=== PATIENT | female | born 1985 | race Caucasian/White ===

== ENCOUNTER 2017-01-24 10:42 | Inpatient (IN) | payer BC ==
[2017-02-10] MEDS ORDERED: Acetaminophen 325 MG Tab PO PRN (00:12)
[2017-02-10] MEDS ORDERED: Misoprostol 400 MCG (4 X 100 MCG TAB) RECTAL PRN (00:12)
[2017-02-10] MEDS ORDERED: Lactated Ringers 500 ML IV ONE (00:12)
[2017-02-10] MEDS ORDERED: Lidocaine 1% 30 ML SDV INJECT PRN (00:12)
[2017-02-10] MEDS ORDERED: Nalbuphine 20 MG/1 ML Amp IVPUSH PRN (00:12)
[2017-02-10] MEDS ORDERED: fentaNYL 100 MCG/2 ML SDV IVPUSH PRN (00:12)
[2017-02-10] MEDS ORDERED: Methylergonovine 0.2 MG/1 ML Amp IM PRN (00:12)
[2017-02-10] MEDS ORDERED: Carboprost Tromethamine 250 MCG/1 ML Amp IM PRN (00:12)
[2017-02-10] MEDS ORDERED: Sodium Chloride 0.9% 10 ML Syringe FLUSH PRN (00:12)
[2017-02-10] MEDS: Misoprostol 25 MCG (1/4 of 100 MCG) Tab VAG PRN ×3 (00:24→14:01)
--- NOTE | 2017-02-10 00:32 | PCM.LDHP ---
L&D History of Present Illness - General Date of Service: 02/10/17 Admit Problem/Dx: Patient Status Order with Admit Dx/Problem 02/10/17 00:12 Patient Status [ADT] Routine Admission Diagnosis/Problem Admission Diagnosis/Problem Source of Information: Patient History Limitations: Reports: No Limitations - History of Present Illness Introduction:: 31-year-old at 39w5d presents for IOL due to LGA. Last ultrasound was on 02/08/17 and showed EFW of 4087 grams. Risks and benefits of induction of labor versus conservative management were discussed with patient and her . They elected to proceed with induction. Patient has been feeling well. Baby has been active. NO regular contractions. NO leaking of fluid or vaginal bleeding. NO new headaches or vision changes. 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: Musculoskeletal History: Reports: None Neurological History: Reports: None Psychiatric History: Reports: None Endocrine/Metabolic History: Reports: None Hematologic History: Reports: None Immunologic History: Reports: None Oncologic (Cancer) History: Reports: None Dermatologic History: Reports: None - Infectious Disease History Infectious Disease History: Reports: None - Past Surgical History Head Surgeries/Procedures: Reports: None HEENT Surgical History: Reports: Other (See Below) Other HEENT Surgeries/Procedures: wisdom teeth removed Female Surgical History: Reports: Breast Implant Social & Family History - Family History Family Medical History: Noncontributory H&P Review of Systems - Review of Systems: Review Of Systems: See Below General: Reports: No Symptoms HEENT: Reports: No Symptoms Pulmonary: Reports: No Symptoms Cardiovascular: Reports: No Symptoms Gastrointestinal: Reports: No Symptoms Genitourinary: Reports: No Symptoms Musculoskeletal: Reports: No Symptoms Skin: Reports: No Symptoms L&D Exam - Exam Exam: See Below - OB Specific Fundal Height In cm: 40 Contraction Frequency (min): 4-7 Contraction Intensity: Mild Movement: Active Heart Tones: Present Heart Tones per Min: 130 Heart Rate (FHR) Variability: Moderate (6-25 bmp) Presentation: Vertex - Breaux Score Breaux Score Cervix Position: Anterior Breaux Score Consistency: Soft Breaux Score Effacement: 51-70% Breaux Score Dilation: 1-2 cm Breaux Score 's Station: -1 ,0 Breaux Score Total: 9 - Exam General: Alert, Oriented HEENT: Conjunctiva Clear, Mucosa Moist & [place] Lungs: Clear to Auscultation, Normal Respiratory Effort Cardiovascular: Regular Rate, Regular Rhythm Extremities: Pedal Edema (Trace to lower extremities bilaterally) Skin: Warm, Dry, Intact Psychiatric: Alert, Normal Affect, Normal Mood - Patient Data Lab Results Last 24 hrs: Laboratory Results - last 24 hr 02/10/17 Range/Units 00:01 WBC 14.2 H (5.0-10.0) 10^3/uL RBC 4.58 (4.2-5.4) 10^6/uL Hgb 13.1 (12.0-16.0) g/dL Hct 38.5 (37.0-47.0) % MCV 84.1 (80-100) fL MCH 28.6 (27.0-34.0) pg MCHC 34.0 (33.0-35.0) g/dL Plt Count 244 (150-450) 10^3/uL Result Diagrams: 02/10/17 00:01 - Problem List (1) LGA (large for gestational age) fetus SNOMED Code(s): 630295452 ICD Code: UOL3538 - Status: Acute Current Visit: Yes (2) Impaired glucose in , antepartum SNOMED Code(s): 063541902 ICD Code: O99.810 - ABNORMAL GLUCOSE COMPLICATING Status: Acute Current Visit: Yes (3) care in third trimester SNOMED Code(s): 339003776, 07699587, 827440781, 657460910 ICD Code: Z34.93 - ENCNTR FOR SUPRVSN OF NORMAL PREG, UNSP, THIRD TRIMESTER Status: Acute Current Visit: Yes Problem List Initiated/Reviewed/Updated: Yes Orders Last 24hrs: Active Orders 24 hr Category Date Time Status Patient Status [ADT] Routine ADT 02/10/17 00:12 Ordered Communication Order [RC] ASDIRECTED Care 02/10/17 00:12 Ordered Communication Order [RC] ASDIRECTED Care 02/10/17 00:12 Ordered Communication Order [RC] ASDIRECTED Care 02/10/17 00:12 Ordered Communication Order [RC] ASDIRECTED Care 02/10/17 00:12 Ordered Communication Order [RC] ASDIRECTED Care 02/10/17 00:12 Ordered Heart Tones [RC] PER UNIT ROUTINE Care 02/10/17 00:12 Ordered Monitoring [RC] PER UNIT ROUTINE Care 02/10/17 00:12 Ordered Notify Provider Vital Signs OB [RC] ASDIRECTED Care 02/10/17 00:12 Ordered Notify Provider [RC] PRN Care 02/10/17 00:12 Ordered Notify Provider [RC] PRN Care 02/10/17 00:12 Ordered Notify Provider [RC] PRN Care 02/10/17 00:12 Ordered Notify Provider [RC] STAT Care 02/10/17 00:12 Ordered Peripheral IV Care [RC] . DIRECTED Care 02/10/17 00:12 Ordered Pump Management, Intrathecal [RC] ASDIRECTED Care 02/10/17 00:12 Ordered Up ad Margarita [RC] ASDIRECTED Care 02/10/17 00:12 Ordered Vaginal Exam [RC] PRN Care 02/10/17 00:12 Ordered Vital Signs [RC] PER UNIT ROUTINE Care 02/10/17 00:12 Ordered Clear Liquid Diet [DIET] Diet 02/10/17 Breakfast Ordered Acetaminophen [Tylenol] Med 02/10/17 00:12 Ordered 650 mg PO Q4H PRN Carboprost Tromethamine [Hemabate DS] Med 02/10/17 00:12 Ordered 250 mcg IM ASDIRECTED PRN Lactated Ringers @ 125 MLS/HR(1000ml) Med 02/10/17 00:15 Ordered Lactated Ringers [Ringers, Lactated] 1,000 ml IV ASDIRECTED Lactated Ringers [Ringers, Lactated] 500 ml Med 02/10/17 00:12 Ordered IV .BOLUS Lidocaine 1% [Xylocaine-MPF 1%] Med 02/10/17 00:12 Ordered 10 ml INJECT ASDIRECTED PRN Methylergonovine [Methergine] Med 02/10/17 00:12 Ordered 0.2 mg IM ASDIRECTED PRN Misoprostol [Cytotec] Med 02/10/17 00:12 Ordered 25 mcg VAG Q4H PRN Misoprostol [Cytotec] Med 02/10/17 00:12 Ordered 800 mcg RECTAL ASDIRECTED PRN Nalbuphine [Nubain] Med 02/10/17 00:12 Ordered 10 mg IVPUSH Q3H PRN Ondansetron [Zofran] Med 02/10/17 00:12 Ordered 4 mg IV Q4H PRN Oxytocin 30 Units in NS @ 2 MUNITS/MIN(500ml) Med 02/10/17 00:15 Ordered Oxytocin/Normal Saline [Pitocin in NS 30 UNIT/500 ML] 30 unit in 500 ml IV TITRATE Sodium Chloride 0.9% [Saline Flush] Med 02/10/17 00:12 Ordered 10 ml FLUSH ASDIRECTED PRN fentaNYL [Sublimaze] Med 02/10/17 00:12 Ordered 50 mcg IVPUSH Q1H PRN Peripheral IV Insertion Adult [OM.PC] Urgent Oth 02/10/17 00:12 Ordered Saline Lock Insert [OM.PC] Routine Oth 02/10/17 00:12 Ordered Resuscitation Status Routine Resus Stat 02/10/17 00:12 Ordered Medication Orders Acetaminophen (Tylenol) 650 mg PO Q4H PRN PRN Reason: Pain (Mild 1-3) and fever Carboprost Tromethamine (Hemabate Ds) 250 mcg IM ASDIRECTED PRN PRN Reason: HEMORRHAGE Fentanyl (Sublimaze) 50 mcg IVPUSH Q1H PRN PRN Reason: Pain (moderate 4-6) Lactated Ringer's (Ringers, Lactated) 500 mls @ 999 mls/hr IV .BOLUS ONE Stop: 02/10/17 00:42 Lactated Ringer's (Ringers, Lactated) 1,000 mls @ 125 mls/hr IV ASDIRECTED KARIS Oxytocin/Sodium Chloride (Pitocin In Ns 30 Unit/500 Ml) 30 unit in 500 mls @ 2 mls/hr IV TITRATE KARIS; 2 MUNITS/MIN PRN Reason: Protocol Lidocaine HCl (Xylocaine-Mpf 1%) 10 ml INJECT ASDIRECTED PRN PRN Reason: Perineal Repair Methylergonovine Maleate (Methergine) 0.2 mg IM ASDIRECTED PRN PRN Reason: Hemorrhage Misoprostol (Cytotec) 800 mcg RECTAL ASDIRECTED PRN PRN Reason: Hemorrhage Misoprostol (Cytotec) 25 mcg VAG Q4H PRN PRN Reason: cervical ripening Nalbuphine HCl (Nubain) 10 mg IVPUSH Q3H PRN PRN Reason: Pain (moderate 4-6) Ondansetron HCl (Zofran) 4 mg IV Q4H PRN PRN Reason: Nausea/Vomiting Sodium Chloride (Saline Flush) 10 ml FLUSH ASDIRECTED PRN PRN Reason: Keep Vein Open Assessment/Plan Comment:: 31-year-old at 39w5d who present for IOL for LGA 1. Admit to L&D 2. Cytotec placed 3. Plan for AROM and pitocin for augmentation 4. Patient does plan for intrathecal 5. Expectant management. Anticipate Nicole Hester MD
[2017-02-10] MEDS: Lactated Ringers 1,000 ML IV SCH ×3 (04:51→22:42)
[2017-02-10] MEDS: Oxytocin/Normal Saline 30 UNIT/500 ML BAG IV SCH ×2 (08:51→20:06)
[2017-02-11] MEDS: Lactated Ringers 1,000 ML IV SCH ×5 (01:33→16:37)
[2017-02-11] MEDS: Ondansetron 4 MG/2 ML SDV IV PRN ×2 (02:29→07:59)
[2017-02-11] MEDS ORDERED: fentaNYL 100 MCG/2 ML SDV ONE ×2 (02:40→08:07)
--- NOTE | 2017-02-11 03:42 | PCM.PRNOTE ---
- Free Text/Narrative Note: Requested to provide analgesia to full term patient in severe pain. Upon entering the room, patient is lying on left side complaining of severe abdominal pain and discomfort. Procedure was discussed with patient including adverse outcomes and expectations. Pt consented to analgesia, SAB/IT. Pt placed into a sitting position. Landmarks for SAB/IT were identified and marked. Back was prepped with betadine x3. A sterile, transparent, fenestrated drape was applied. Excess betadine was removed. Using 3 mL of a 1% lidocaine solution, a skin wheel was placed at the L3/L4 interspace. A 24 ga (4 inch) Pencan spinal needle was inserted but unsuccessful for first attempt. Second attempt at L4/L5 interspace with a 24 ga (4 inch) needle was positive for CSF. Negative for heme or paresthesias. Injected fentanyl 20 mcg, sufentanil 10 mcg , and 10 mg of a 0.75% bupivacaine solution with an epi wash. Pt was placed left lateral position for approximately 20 minutes. There were zero complications or adverse outcomes. Will continue to monitor.
--- NOTE | 2017-02-11 08:51 | PCM.PRNOTE ---
- Free Text/Narrative Note: Requested to provide analgesia to full term patient in severe pain. Upon entering the room, patient is sitting on side of bed complaining of severe abdominal pain and discomfort. Procedure was discussed with patient including adverse outcomes and expectations. Pt consented to analgesia, SAB/IT. Pt placed into a sitting position. Landmarks for SAB/IT were identified and marked. Back was prepped with betadine x3. A sterile, transparent, fenestrated drape was applied. Excess betadine was removed. Using 3 mL of a 1% lidocaine solution, a skin wheel was placed at the L4L5 interspace. A 24 ga (4 inch) Pencan spinal needle was inserted until positive for CSF. Negative for heme or paresthesias. Injected fentanyl 20 mcg, sufentanil 11.25 mcg, and 10 mg of a 0.75% bupivacaine solution with an epi wash. Pt was placed left lateral position for approximately 20 minutes. There were zero complications or adverse outcomes. Will continue to monitor.
[2017-02-11] MEDS ORDERED: Citric Acid/Sodium Citrate Solution 30 ML Cup PO ONE (10:39)
[2017-02-11] MEDS ORDERED: ceFAZolin 2 GM in Premix Bag 1 BAG IV ONE (10:39)
--- NOTE | 2017-02-11 11:27 | PCM.PNLD ---
Labor Progress Note - VS & Meds Vital Signs: Last Vital Signs Temp 37.0 C 02/11/17 04:30 Pulse 56 L 02/11/17 08:39 Resp 18 02/11/17 08:39 BP 127/54 L 02/11/17 08:39 Pulse Ox 100 02/11/17 08:39 Active Medications: Current Medications Acetaminophen (Tylenol) 650 mg PO Q4H PRN PRN Reason: Pain (Mild 1-3) and fever Carboprost Tromethamine (Hemabate Ds) 250 mcg IM ASDIRECTED PRN PRN Reason: HEMORRHAGE Fentanyl (Sublimaze) 50 mcg IVPUSH Q1H PRN PRN Reason: Pain (moderate 4-6) Last Admin: 02/11/17 01:31 Dose: 50 mcg Lactated Ringer's (Ringers, Lactated) 1,000 mls @ 125 mls/hr IV ASDIRECTED KARIS Last Admin: 02/11/17 11:04 Dose: 125 mls/hr Oxytocin/Sodium Chloride (Pitocin In Ns 30 Unit/500 Ml) 30 unit in 500 mls @ 2 mls/hr IV TITRATE KARIS; 2 MUNITS/MIN PRN Reason: Protocol Last Titration: 02/11/17 10:15 Dose: 0 mls/hr Lidocaine HCl (Xylocaine-Mpf 1%) 10 ml INJECT ASDIRECTED PRN PRN Reason: Perineal Repair Methylergonovine Maleate (Methergine) 0.2 mg IM ASDIRECTED PRN PRN Reason: Hemorrhage Misoprostol (Cytotec) 800 mcg RECTAL ASDIRECTED PRN PRN Reason: Hemorrhage Misoprostol (Cytotec) 25 mcg VAG Q4H PRN PRN Reason: cervical ripening Last Admin: 02/10/17 14:01 Dose: 25 mcg Nalbuphine HCl (Nubain) 10 mg IVPUSH Q3H PRN PRN Reason: Pain (moderate 4-6) Last Admin: 02/10/17 22:39 Dose: 10 mg Ondansetron HCl (Zofran) 4 mg IV Q4H PRN PRN Reason: Nausea/Vomiting Last Admin: 02/11/17 07:59 Dose: 4 mg Sodium Chloride (Saline Flush) 10 ml FLUSH ASDIRECTED PRN PRN Reason: Keep Vein Open Discontinued Medications Citric Acid/Sodium Citrate (Bicitra Solution) 30 ml PO ONETIME ONE Stop: 02/11/17 10:40 Fentanyl (Sublimaze) Confirm Administered Dose 100 mcg .ROUTE .STK-MED ONE Stop: 02/11/17 02:41 Last Admin: 02/11/17 06:30 Dose: Not Given Fentanyl (Sublimaze) Confirm Administered Dose 100 mcg .ROUTE .STK-MED ONE Stop: 02/11/17 08:08 Lactated Ringer's (Ringers, Lactated) 500 mls @ 999 mls/hr IV .BOLUS ONE Stop: 02/10/17 00:42 Last Admin: 02/11/17 04:54 Dose: Not Given Cefazolin Sodium/Dextrose 2 gm (/ Premix) 50 mls @ 100 mls/hr IV ONETIME ONE Stop: 02/11/17 11:08 Sufentanil Citrate (Sufenta) Confirm Administered Dose 50 mcg .ROUTE .STK-MED ONE Stop: 02/11/17 02:42 Last Admin: 02/11/17 06:30 Dose: Not Given Sufentanil Citrate (Sufenta) Confirm Administered Dose 50 mcg .ROUTE .STK-MED ONE Stop: 02/11/17 08:08 - Uterine Contractions Uterine Monitoring Mode: IUPC Contraction Frequency (min): 6-6.5 Contraction Duration (sec): 60-80 Contraction Intensity: Strong Uterine Resting Tone: Soft - Monitoring Heart Rate (FHR) Variability: Moderate (6-25 bmp) - Vaginal Exam Dilation (cm): 8.5 Effacement (Percent): 100 Station: -2 Cervical Position: Midposition Sterile Vaginal Exam Performed By: Ray Saunders Vaginal Exam Comment: Scalp stimulation performed at this time, along with cervical check. - Labor Progress (Free Text) Labor Progress: Patient was again checked just before 10 AM by SONALI Clarke. Cervix remained unchanged. Patient has so far received 3 doses of Cytotec, undergone AROM and been on pitocin for over 12 hours. No significant cervical change in the past 4 hours. Discussed the low chance of progression to complete dilation as well as the risks and benefits of continuing with labor. Patient and her are in agreement with proceeding with section. As patient received an intrathecal around 0800, we will wait until 12:00-12:30 for delivery as long as baby remains stable. Patient is comfortable with this plan. The risks and benefits of section, including but not limited to bleeding, infection, and injury to surrounding structures were reviewed with the patient. Consents were signed. Will proceed with section when appropriate. Nicole Hester MD
[2017-02-11] MEDS ORDERED: Oxytocin/Normal Saline 60 UNIT/1,000 ML BAG ONE (12:52)
[2017-02-11] MEDS ORDERED: Oxytocin/Normal Saline 30 UNIT/500 ML BAG IV SCH (14:20)
[2017-02-11] MEDS ORDERED: diphenhydrAMINE 50 MG/ML SDV IVPUSH PRN (14:43)
[2017-02-11] MEDS ORDERED: ePHEDrine 50 MG/ML SDV IVPUSH PRN (14:43)
[2017-02-11] MEDS ORDERED: Naloxone 2 MG/2 ML Syringe IVPUSH PRN (14:43)
[2017-02-11] MEDS ORDERED: Acetaminophen/oxyCODONE 325-5 MG Tab PO PRN (14:43)
--- NOTE | 2017-02-11 14:49 | PCM.DEL ---
L & D Note - General Info Date of Service: 02/11/17 Mother's Due Date: 02/12/17 - Delivery Note Labor: Augmented by ARM, Augmented by Oxytocin Cervical Ripening Method: Misoprostil Delivery Outcome: Livebirth Delivery Method: Primary Presentation: Vertex Nuchal Cord: None Anesthesia Type: Spinal, Intrathecal (x2) Amniotic Fluid Description: Clear Laceration: None Placenta: Intact Cord: 3 Vessels Estimated Blood Loss: 600 Resuscitation Needed: Yes [place]: Suctioned, Bulb Syringe, Stimulated, Warmed, Warmer Used Provider: Nicole Hester Score 1 min: 2 Score 5 min: 9 Delivery Comments (Free Text/Narrative):: Please see procedure note - Patient Data Vitals - Most Recent: Last Vital Signs Temp 36.9 C 02/11/17 10:15 Pulse 66 02/11/17 11:00 Resp 18 02/11/17 11:00 BP 130/55 L 02/11/17 11:00 Pulse Ox 100 02/11/17 10:45 Weight - Most Recent: 119.295 kg I&O - Last 24 Hours: Intake & Output 02/10/17 02/11/17 02/11/17 22:59 06:59 14:59 Intake Total 50 Balance 50 Lab Results Last 24 Hours: Laboratory Results - last 24 hr 02/10/17 Range/Units 00:01 Blood Type O POSITIVE Gel Antibody Screen Negative Med Orders - Current: Current Medications Acetaminophen (Tylenol) 650 mg PO Q4H PRN PRN Reason: Pain (Mild 1-3) and fever Carboprost Tromethamine (Hemabate Ds) 250 mcg IM ASDIRECTED PRN PRN Reason: HEMORRHAGE Methylergonovine Maleate (Methergine) 0.2 mg IM ASDIRECTED PRN PRN Reason: Hemorrhage Misoprostol (Cytotec) 800 mcg RECTAL ASDIRECTED PRN PRN Reason: Hemorrhage Misoprostol (Cytotec) 25 mcg VAG Q4H PRN PRN Reason: cervical ripening Last Admin: 02/10/17 14:01 Dose: 25 mcg Ondansetron HCl (Zofran) 4 mg IV Q4H PRN PRN Reason: Nausea/Vomiting Last Admin: 02/11/17 07:59 Dose: 4 mg Sodium Chloride (Saline Flush) 10 ml FLUSH ASDIRECTED PRN PRN Reason: Keep Vein Open Discontinued Medications Citric Acid/Sodium Citrate (Bicitra Solution) 30 ml PO ONETIME ONE Stop: 02/11/17 10:40 Last Admin: 02/11/17 12:10 Dose: 30 ml Fentanyl (Sublimaze) 50 mcg IVPUSH Q1H PRN PRN Reason: Pain (moderate 4-6) Last Admin: 02/11/17 01:31 Dose: 50 mcg Fentanyl (Sublimaze) Confirm Administered Dose 100 mcg .ROUTE .STK-MED ONE Stop: 02/11/17 02:41 Last Admin: 02/11/17 06:30 Dose: Not Given Fentanyl (Sublimaze) Confirm Administered Dose 100 mcg .ROUTE .STK-MED ONE Stop: 02/11/17 08:08 Last Admin: 02/11/17 12:09 Dose: Not Given Lactated Ringer's (Ringers, Lactated) 500 mls @ 999 mls/hr IV .BOLUS ONE Stop: 02/10/17 00:42 Last Admin: 02/11/17 04:54 Dose: Not Given Lactated Ringer's (Ringers, Lactated) 1,000 mls @ 125 mls/hr IV ASDIRECTED KARIS Last Admin: 02/11/17 11:04 Dose: 125 mls/hr Oxytocin/Sodium Chloride (Pitocin In Ns 30 Unit/500 Ml) 30 unit in 500 mls @ 2 mls/hr IV TITRATE KARIS; 2 MUNITS/MIN PRN Reason: Protocol Last Titration: 02/11/17 10:15 Dose: 0 mls/hr Cefazolin Sodium/Dextrose 2 gm (/ Premix) 50 mls @ 100 mls/hr IV ONETIME ONE Stop: 02/11/17 11:08 Last Admin: 02/11/17 13:10 Dose: 100 mls/hr Oxytocin/Sodium Chloride (Pitocin In Ns 30 Unit/500 Ml) Confirm Administered Dose 60 unit in 1,000 mls @ as directed .ROUTE .STK-MED ONE Stop: 02/11/17 12:53 Lidocaine HCl (Xylocaine-Mpf 1%) 10 ml INJECT ASDIRECTED PRN PRN Reason: Perineal Repair Nalbuphine HCl (Nubain) 10 mg IVPUSH Q3H PRN PRN Reason: Pain (moderate 4-6) Last Admin: 02/10/17 22:39 Dose: 10 mg Sufentanil Citrate (Sufenta) Confirm Administered Dose 50 mcg .ROUTE .STK-MED ONE Stop: 02/11/17 02:42 Last Admin: 02/11/17 06:30 Dose: Not Given Sufentanil Citrate (Sufenta) Confirm Administered Dose 50 mcg .ROUTE .STK-MED ONE Stop: 02/11/17 08:08 Last Admin: 02/11/17 12:09 Dose: Not Given - Problem List & Annotations (1) Impaired glucose in , antepartum SNOMED Code(s): 709032525 Code(s): O99.810 - ABNORMAL GLUCOSE COMPLICATING Status: Acute Current Visit: Yes (2) care in third trimester SNOMED Code(s): 332301451, 41515210, 900870603, 495297526 Code(s): Z34.93 - ENCNTR FOR SUPRVSN OF NORMAL PREG, UNSP, THIRD TRIMESTER Status: Acute Current Visit: Yes (3) Status post delivery SNOMED Code(s): 675580406 Code(s): Z98.891 - HISTORY OF UTERINE SCAR FROM PREVIOUS SURGERY Status: Acute Current Visit: Yes - Problem List Review Problem List Initiated/Reviewed/Updated: Yes - My Orders Last 24 Hours: My Active Orders 02/11/17 14:43 Bedrest [RC] ASDIRECTED Communication Order [RC] PER UNIT ROUTINE Communication Order [RC] PER UNIT ROUTINE Communication Order [RC] Per Unit Routine Intake and Output [RC] Q8H Notify Provider Intake and Out [RC] ASDIRECTED RT Incentive Spirometry [RC] Q2HWA Urinary Catheter Removal [RC] Per Unit Routine Vital Signs [RC] PER UNIT ROUTINE Consult to Business Banking Relationship Manager [CONS] Routine Acetaminophen/oxyCODONE [Percocet 325-5 MG] 1 tab PO Q4H PRN Acetaminophen/oxyCODONE [Percocet 325-5 MG] 2 tab PO Q4H PRN Docusate Sodium [Colace] 100 mg PO Q12H PRN Ibuprofen [Motrin] 800 mg PO Q8H PRN Naloxone [Narcan] 0.1 mg IVPUSH SEECOMMENT PRN Simethicone 80 mg PO Q4H PRN diphenhydrAMINE [Benadryl] 25 mg IVPUSH Q6H PRN ePHEDrine [ePHEDrine Sulfate] 5 mg IVPUSH SEECOMMENT PRN Antiembolic Hose [OM.PC] Per Unit Routine Assess Lochia [WOMSER] Per Unit Routine Assess Uterine Involution [WOMSER] Per Unit Routine Breast Pump [WOMSER] Per Unit Routine Sequential Compression Device [OM.PC] Per Unit Routine 02/11/17 14:45 Antiembolic Devices [RC] PER UNIT ROUTINE Ketorolac [Toradol] 15 mg IVPUSH Q6H Lactated Ringers @ 125 MLS/HR(1000ml) Lactated Ringers [Ringers, Lactated] 1, 000 ml IV ASDIRECTED 02/11/17 Dinner Regular Diet [DIET] 02/11/17 Lunch Nothing Per Oral Diet [DIET] 02/13/17 08:00 CBC W/O DIFF,HEMOGRAM [HEME] Routine - Assessment Assessment:: 31-year-old, now , status post primary section at 39w6d for failure to progress - Plan Plan:: 1. Initiate routine postoperative care 2. Plans to breastfeed 3. Check CBC tomorrow AM 4. Anticipate discharge 02/14/17 Nicole Hester MD
--- NOTE | 2017-02-11 14:54 | PCM.PRNOTE ---
- Free Text/Narrative Note: Section Operative Report Date of Surgery: 02/11/2017 Surgeon: Nicole Hester MD Car Sales Representative: Bruce Menon MD Pre-Operative Diagnosis: IOL for suspected LGA Failure to progress Post-Operative Diagnosis: Same Procedure Performed: Primary low transverse section Anesthesia: Spinal EBL: 600 mL IVF: 1400 mL Drains: New catheter with 200 mL of urine output Specimens: None Complications: None apparent Findings: Normal uterus, tubes, and ovaries. Indication and Consent: After several hours of pitocin, cervical change had not been made for over 4 hours. Due to failure to progress, the decision was made to proceed with section. The patient understood that the risks of section include, but are not limited to, visceral or vascular injury, infection, blood loss and need for blood transfusion, prolonged hospitalization, and reoperation. The patient stated understanding and desired to proceed. All questions were answered. Procedure in Detail: The patient was taken to the operating room. New catheter and pneumoboots were placed. She was then prepped and draped in routine fashion in dorsal supine position with a left adamson tilt. Two grams of cefazolin (Ancef) were given for infection prophylaxis. Spinal anesthesia was administered. A Pfannenstiel skin incision was made with a scalpel and carried down to the fascia. The fascia was incised and extended laterally. The rectus musculature was in the midline down to the level of the pubic symphysis. The peritoneum was found to be free of adherent bowel or bladder tissue and entered bluntly. The peritoneal opening was then extended superiorly and inferiorly to the bladder reflection with good visualization of the bladder. The Mu retractor was placed. Brief intraabdominal survey revealed scant, clear peritoneal fluid and thinned-out lower uterine segment. A bladder flap was created. The lower uterine segment was incised with a scalpel. The uterine incision was extended bluntly with lateral and upward traction. The fetus was in vertex position. The head was elevated out of the maternal pelvis with special attention paid to avoid using the uterine incision as a fulcrum. Gentle fundal pressure was applied once the head was brought into the incision. The infant was delivered with minimal difficulty. Bulb suctioning of the 's nose and mouth was performed on the operative field. The cord was clamped and cut in standard fashion, and the was handed over to the awaiting nursery staff. IV oxytocin was initiated to facilitate uterine contractions. Cord blood was collected. The placenta was delivered intact with manual message of the uterine fundus along with gentle cord traction. The inside of the uterus was gently wiped with a lap sponge to assure complete removal of remaining products of conception. The uterine incision was closed with 0 - Vicryl suture in a running locked fashion. A second imbricating layer of 0- Vicryl was also placed. 3 figure-of-8 sutures were placed to control bleeding. The incision was inspected and hemostasis achieved. The ovaries and tubes were visualized and found to be normal. The blood clots and fluid were wiped out of the abdomen and pelvis with moist laparotomy sponges. The uterine incision was re-inspected along with all other incised surfaces and good hemostasis was confirmed. The Mu retractor was removed. The uterine incision was again inspected and found to be hemostatic. The peritoneus was then closed using 2-0 Vicyrl. The fascia was then closed with 2-0 looped PDS suture with care not to include any underlying abdominal contents. The sub-cutaneous layer was reapproximated with plain suture. The skin was closed with 3-0 suture on a Jose needle in a subcuticular fashion. Dressing was applied. Sponge and instrument counts were reported as correct times two. Pt tolerated procedure well and was taken to PACU in stable condition. Nicole Hester MD
[2017-02-11] MEDS ORDERED: Furosemide 20 MG/2 ML VIAL IVPUSH ONE (18:32)
[2017-02-11] MEDS: Ketorolac 30 MG/ML SDV IVPUSH SCH (20:07)
[2017-02-11] MEDS: Docusate Sodium 100 MG Cap PO PRN (20:15)
[2017-02-11] MEDS: Simethicone 80 MG Tab.Chew PO PRN (20:15)
[2017-02-12] MEDS: Lactated Ringers 1,000 ML IV SCH (00:29)
[2017-02-12] MEDS: Ketorolac 30 MG/ML SDV IVPUSH SCH ×2 (02:07→09:05)
[2017-02-12] MEDS: Prenatal Multivitamin with Calcium/Folic Acid/Iron Tab PO SCH (09:54)
[2017-02-12] MEDS: Docusate Sodium 100 MG Cap PO PRN ×2 (09:55→23:00)
[2017-02-12] MEDS: Acetaminophen/oxyCODONE 325-5 MG Tab PO PRN ×4 (09:55→23:00)
[2017-02-12] MEDS: Simethicone 80 MG Tab.Chew PO PRN ×3 (09:56→23:00)
--- NOTE | 2017-02-12 10:48 | PCM.PNPP ---
- General Info Date of Service: 02/12/17 Subjective Update: 31-year-old, now , POD#1 status post primary section for failure to progress at 39w6d. Patient is tolerating a general diet. She has been out of bed a couple of times. She did have decreased urine output overnight but this improved with dose of lasix. No dizziness or lightheadedness. Pain is well controlled. Functional Status: Reports: Pain Controlled, Tolerating Diet, Ambulating - Review of Systems General: Reports: No Symptoms HEENT: Reports: No Symptoms Pulmonary: Reports: No Symptoms Cardiovascular: Reports: No Symptoms Gastrointestinal: Reports: No Symptoms Genitourinary: Reports: No Symptoms Musculoskeletal: Reports: No Symptoms Skin: Reports: No Symptoms - General Info Date of Service: 02/12/17 - Patient Data Vital Signs - Most Recent: Last Vital Signs Temp 37.6 C 02/12/17 08:00 Pulse 108 H 02/12/17 08:00 Resp 16 02/12/17 08:00 BP 123/63 02/12/17 08:00 Pulse Ox 97 02/12/17 08:00 Weight - Most Recent: 119.295 kg I&O - Last 24 Hours: Intake & Output 02/11/17 02/12/17 02/12/17 22:59 06:59 14:59 Intake Total 2020 Output Total 95 900 Balance -95 1120 Lab Results - Last 24 Hours: Laboratory Results - last 24 hr 02/10/17 Range/Units 00:01 Blood Type O POSITIVE Gel Antibody Screen Negative Med Orders - Current: Current Medications Acetaminophen (Tylenol) 650 mg PO Q4H PRN PRN Reason: Pain (Mild 1-3) and fever Carboprost Tromethamine (Hemabate Ds) 250 mcg IM ASDIRECTED PRN PRN Reason: HEMORRHAGE Diphenhydramine HCl (Benadryl) 25 mg IVPUSH Q6H PRN PRN Reason: Itching or Nausea Docusate Sodium (Colace) 100 mg PO Q12H PRN PRN Reason: Constipation Last Admin: 02/12/17 09:55 Dose: 100 mg Ephedrine Sulfate (Ephedrine Sulfate) 5 mg IVPUSH SEECOMMENT PRN PRN Reason: Other Lactated Ringer's (Ringers, Lactated) 1,000 mls @ 125 mls/hr IV ASDIRECTED KARIS Last Admin: 02/12/17 00:29 Dose: 125 mls/hr Oxytocin/Sodium Chloride (Pitocin In Ns 30 Unit/500 Ml) 30 unit in 500 mls @ 2 mls/hr IV TITRATE KARIS; 2 MUNITS/MIN PRN Reason: Protocol Last Titration: 02/11/17 16:37 Dose: 0 mls/hr Ibuprofen (Motrin) 800 mg PO Q8H PRN PRN Reason: mild pain or fever Methylergonovine Maleate (Methergine) 0.2 mg IM ASDIRECTED PRN PRN Reason: Hemorrhage Misoprostol (Cytotec) 800 mcg RECTAL ASDIRECTED PRN PRN Reason: Hemorrhage Misoprostol (Cytotec) 25 mcg VAG Q4H PRN PRN Reason: cervical ripening Last Admin: 02/10/17 14:01 Dose: 25 mcg Naloxone HCl (Narcan) 0.1 mg IVPUSH SEECOMMENT PRN PRN Reason: Respiratory Depression Ondansetron HCl (Zofran) 4 mg IV Q4H PRN PRN Reason: Nausea/Vomiting Last Admin: 02/11/17 07:59 Dose: 4 mg Oxycodone/Acetaminophen (Percocet 325-5 Mg) 1 tab PO Q4H PRN PRN Reason: Pain (moderate 4-6) Oxycodone/Acetaminophen (Percocet 325-5 Mg) 2 tab PO Q4H PRN PRN Reason: Pain (moderate 4-6) Last Admin: 02/12/17 09:55 Dose: 2 tab Prenat Multivit/[employer]ographic Dra[employer]/Iron/Folic Ac ( Plus Iron) 1 each PO WITHBREAKFAST KARIS Last Admin: 02/12/17 09:54 Dose: 1 each Simethicone (Simethicone) 80 mg PO Q4H PRN PRN Reason: Gas Last Admin: 02/12/17 09:56 Dose: 80 mg Sodium Chloride (Saline Flush) 10 ml FLUSH ASDIRECTED PRN PRN Reason: Keep Vein Open Discontinued Medications Citric Acid/Sodium Citrate (Bicitra Solution) 30 ml PO ONETIME ONE Stop: 02/11/17 10:40 Last Admin: 02/11/17 12:10 Dose: 30 ml Fentanyl (Sublimaze) 50 mcg IVPUSH Q1H PRN PRN Reason: Pain (moderate 4-6) Last Admin: 02/11/17 01:31 Dose: 50 mcg Fentanyl (Sublimaze) Confirm Administered Dose 100 mcg .ROUTE .STK-MED ONE Stop: 02/11/17 02:41 Last Admin: 02/11/17 06:30 Dose: Not Given Fentanyl (Sublimaze) Confirm Administered Dose 100 mcg .ROUTE .STK-MED ONE Stop: 02/11/17 08:08 Last Admin: 02/11/17 12:09 Dose: Not Given Furosemide (Lasix) 20 mg IVPUSH ONETIME ONE Stop: 02/11/17 18:33 Last Admin: 02/11/17 20:13 Dose: 20 mg Lactated Ringer's (Ringers, Lactated) 500 mls @ 999 mls/hr IV .BOLUS ONE Stop: 02/10/17 00:42 Last Admin: 02/11/17 04:54 Dose: Not Given Lactated Ringer's (Ringers, Lactated) 1,000 mls @ 125 mls/hr IV ASDIRECTED KARIS Last Admin: 02/11/17 11:04 Dose: 125 mls/hr Oxytocin/Sodium Chloride (Pitocin In Ns 30 Unit/500 Ml) 30 unit in 500 mls @ 2 mls/hr IV TITRATE KARIS; 2 MUNITS/MIN PRN Reason: Protocol Last Titration: 02/11/17 10:15 Dose: 0 mls/hr Cefazolin Sodium/Dextrose 2 gm (/ Premix) 50 mls @ 100 mls/hr IV ONETIME ONE Stop: 02/11/17 11:08 Last Admin: 02/11/17 13:10 Dose: 100 mls/hr Oxytocin/Sodium Chloride (Pitocin In Ns 30 Unit/500 Ml) Confirm Administered Dose 60 unit in 1,000 mls @ as directed .ROUTE .STK-MED ONE Stop: 02/11/17 12:53 Ketorolac Tromethamine (Toradol) 15 mg IVPUSH Q6H KARIS Stop: 02/12/17 08:01 Last Admin: 02/12/17 09:05 Dose: 15 mg Lidocaine HCl (Xylocaine-Mpf 1%) 10 ml INJECT ASDIRECTED PRN PRN Reason: Perineal Repair Nalbuphine HCl (Nubain) 10 mg IVPUSH Q3H PRN PRN Reason: Pain (moderate 4-6) Last Admin: 02/10/17 22:39 Dose: 10 mg Sufentanil Citrate (Sufenta) Confirm Administered Dose 50 mcg .ROUTE .STK-MED ONE Stop: 02/11/17 02:42 Last Admin: 02/11/17 06:30 Dose: Not Given Sufentanil Citrate (Sufenta) Confirm Administered Dose 50 mcg .ROUTE .STK-MED ONE Stop: 02/11/17 08:08 Last Admin: 02/11/17 12:09 Dose: Not Given - Interaction Infant Disposition, : [place] in Room with Family Feeding: Attempted ; Nursed Fair/Poor Support Person: Significant Other - Recovery Exam Fundal Tone: Firm Fundal Level: At Umbilicus Fundal Placement: Midline Lochia Amount: Scant Lochia Color: Rubra/Red Perineum Description: Intact, Minimal Bruising/Swelling Episiotomy/Laceration: None Bladder Status: Indwelling Catheter in Place Urinary Elimination: Indwelling Catheter - Exam General: Alert, Oriented HEENT: Pupils Equal, Pupils Reactive Lungs: Clear to Auscultation, Normal Respiratory Effort Cardiovascular: Regular Rate, Regular Rhythm, No Murmurs Extremities: Pedal Edema (+1 bilaterally) Skin: Warm, Dry, Intact Wound/Incisions: Dressing Dry and Intact - Problem List & Annotations (1) Impaired glucose in , antepartum SNOMED Code(s): 450086367 Code(s): O99.810 - ABNORMAL GLUCOSE COMPLICATING Status: Acute Current Visit: Yes (2) care in third trimester SNOMED Code(s): 266531427, 08978586, 328292680, 749945714 Code(s): Z34.93 - ENCNTR FOR SUPRVSN OF NORMAL PREG, UNSP, THIRD TRIMESTER Status: Acute Current Visit: Yes (3) Status post delivery SNOMED Code(s): 117915675 Code(s): Z98.891 - HISTORY OF UTERINE SCAR FROM PREVIOUS SURGERY Status: Acute Current Visit: Yes - Problem List Review Problem List Initiated/Reviewed/Updated: Yes - My Orders Last 24 Hours: My Active Orders 02/11/17 14:20 Oxytocin/Normal Saline [Pitocin in NS 30 UNIT/500 ML] 30 unit in 500 ml IV TITRATE 02/11/17 14:43 Bedrest [RC] ASDIRECTED Communication Order [RC] PER UNIT ROUTINE Communication Order [RC] PER UNIT ROUTINE Communication Order [RC] Per Unit Routine Intake and Output [RC] Q8H Notify Provider Intake and Out [RC] ASDIRECTED RT Incentive Spirometry [RC] Q2HWA Urinary Catheter Removal [RC] Per Unit Routine Vital Signs [RC] PER UNIT ROUTINE Consult to Rn Rehabilitation [CONS] Routine Acetaminophen/oxyCODONE [Percocet 325-5 MG] 1 tab PO Q4H PRN Acetaminophen/oxyCODONE [Percocet 325-5 MG] 2 tab PO Q4H PRN Docusate Sodium [Colace] 100 mg PO Q12H PRN Naloxone [Narcan] 0.1 mg IVPUSH SEECOMMENT PRN Simethicone 80 mg PO Q4H PRN diphenhydrAMINE [Benadryl] 25 mg IVPUSH Q6H PRN ePHEDrine [ePHEDrine Sulfate] 5 mg IVPUSH SEECOMMENT PRN Antiembolic Hose [OM.PC] Per Unit Routine Assess Lochia [WOMSER] Per Unit Routine Assess Uterine Involution [WOMSER] Per Unit Routine Breast Pump [WOMSER] Per Unit Routine Sequential Compression Device [OM.PC] Per Unit Routine 02/11/17 14:45 Antiembolic Devices [RC] 08,20 Lactated Ringers [Ringers, Lactated] 1,000 ml IV ASDIRECTED 02/11/17 Dinner Regular Diet [DIET] 02/12/17 08:00 Vit with Ca/FA/Iron [ Plus Iron] 1 each PO WITHBREAKFAST 02/12/17 10:35 CBC W/O DIFF,HEMOGRAM [HEME] Routine 02/12/17 16:00 Ibuprofen [Motrin] 800 mg PO Q8H PRN - Assessment Assessment:: 31-year-old, now , POD#1 status post primary section at 39w6d for failure to progress - Plan Plan:: 1. Continue routine postoperative care 2. Plans to breastfeed 3. CBC is pending 4. Anticipate discharge 02/14/17 Nicole Hester MD
[2017-02-12] MEDS: Ibuprofen 800 MG Tab PO PRN (16:23)
[2017-02-13] MEDS: Ibuprofen 800 MG Tab PO PRN ×3 (04:23→21:03)
[2017-02-13] MEDS: Acetaminophen/oxyCODONE 325-5 MG Tab PO PRN ×5 (04:23→21:43)
[2017-02-13] MEDS: Ferrous Sulfate 325 MG Tab PO SCH (08:42)
[2017-02-13] MEDS: Docusate Sodium 100 MG Cap PO PRN ×2 (08:42→21:04)
[2017-02-13] MEDS: Prenatal Multivitamin with Calcium/Folic Acid/Iron Tab PO SCH (08:42)
[2017-02-13] MEDS ORDERED: Oxytocin/Normal Saline 30 UNIT/500 ML BAG IV ONE (11:14)
--- NOTE | 2017-02-13 13:05 | PCM.PNPP ---
- General Info Subjective Update: 31-year-old, now , POD#2 status post primary section for failure to progress at 39w6d. Patient is tolerating a general diet. She has been ambulating without difficulty. New has been removed, and she is urinating without difficulty. She is passing gas. No dizziness or lightheadedness. Pain is well controlled. She thinks she may have a hemorrhoid. No other concerns per patient. No concerns per nursing. Functional Status: Reports: Pain Controlled, Tolerating Diet, Ambulating, Urinating, New Symptoms (hemorrhoid) - Review of Systems General: Reports: No Symptoms HEENT: Reports: No Symptoms Pulmonary: Reports: No Symptoms Cardiovascular: Reports: No Symptoms Gastrointestinal: Reports: No Symptoms Genitourinary: Reports: No Symptoms Musculoskeletal: Reports: No Symptoms Skin: Reports: No Symptoms Neurological: Reports: No Symptoms - General Info Date of Service: 02/13/17 - Patient Data Vital Signs - Most Recent: Last Vital Signs Temp 37.2 C 02/13/17 08:00 Pulse 101 H 02/13/17 08:00 Resp 18 02/13/17 08:00 BP 136/85 02/13/17 08:00 Pulse Ox 99 02/13/17 08:00 Weight - Most Recent: 119.295 kg Lab Results - Last 24 Hours: Laboratory Results - last 24 hr 02/13/17 Range/Units 06:30 WBC 13.1 H (5.0-10.0) 10^3/uL RBC 3.42 L (4.2-5.4) 10^6/uL Hgb 9.7 L (12.0-16.0) g/dL Hct 30.1 L (37.0-47.0) % MCV 88.0 (80-100) fL MCH 28.4 (27.0-34.0) pg MCHC 32.2 L (33.0-35.0) g/dL Plt Count 182 (150-450) 10^3/uL Neut % (Auto) 82.4 H (42.2-75.2) % Lymph % (Auto) 9.5 L (20.5-50.1) % [place] % (Auto) 6.9 (2-8) % Eos % (Auto) 1.0 (1.0-3.0) % Baso % (Auto) 0.2 (0.0-1.0) % Med Orders - Current: Current Medications Acetaminophen (Tylenol) 650 mg PO Q4H PRN PRN Reason: Pain (Mild 1-3) and fever Carboprost Tromethamine (Hemabate Ds) 250 mcg IM ASDIRECTED PRN PRN Reason: HEMORRHAGE Diphenhydramine HCl (Benadryl) 25 mg IVPUSH Q6H PRN PRN Reason: Itching or Nausea Docusate Sodium (Colace) 100 mg PO Q12H PRN PRN Reason: Constipation Last Admin: 02/13/17 08:42 Dose: 100 mg Ephedrine Sulfate (Ephedrine Sulfate) 5 mg IVPUSH SEECOMMENT PRN PRN Reason: Other Ferrous Sulfate (Ferrous Sulfate) 325 mg PO WITHBREAKFAST KARIS Last Admin: 02/13/17 08:42 Dose: 325 mg Lactated Ringer's (Ringers, Lactated) 1,000 mls @ 125 mls/hr IV ASDIRECTED KARIS Last Admin: 02/12/17 00:29 Dose: 125 mls/hr Oxytocin/Sodium Chloride (Pitocin In Ns 30 Unit/500 Ml) 30 unit in 500 mls @ 2 mls/hr IV TITRATE KARIS; 2 MUNITS/MIN PRN Reason: Protocol Last Titration: 02/11/17 16:37 Dose: 0 mls/hr Ibuprofen (Motrin) 800 mg PO Q8H PRN PRN Reason: mild pain or fever Last Admin: 02/13/17 04:23 Dose: 800 mg Methylergonovine Maleate (Methergine) 0.2 mg IM ASDIRECTED PRN PRN Reason: Hemorrhage Misoprostol (Cytotec) 800 mcg RECTAL ASDIRECTED PRN PRN Reason: Hemorrhage Misoprostol (Cytotec) 25 mcg VAG Q4H PRN PRN Reason: cervical ripening Last Admin: 02/10/17 14:01 Dose: 25 mcg Naloxone HCl (Narcan) 0.1 mg IVPUSH SEECOMMENT PRN PRN Reason: Respiratory Depression Ondansetron HCl (Zofran) 4 mg IV Q4H PRN PRN Reason: Nausea/Vomiting Last Admin: 02/11/17 07:59 Dose: 4 mg Oxycodone/Acetaminophen (Percocet 325-5 Mg) 1 tab PO Q4H PRN PRN Reason: Pain (moderate 4-6) Oxycodone/Acetaminophen (Percocet 325-5 Mg) 2 tab PO Q4H PRN PRN Reason: Pain (moderate 4-6) Last Admin: 02/13/17 08:42 Dose: 2 tab Prenat Multivit/[place]/Iron/Folic Ac ( Plus Iron) 1 each PO WITHBREAKFAST KARIS Last Admin: 02/13/17 08:42 Dose: 1 each Simethicone (Simethicone) 80 mg PO Q4H PRN PRN Reason: Gas Last Admin: 02/12/17 23:00 Dose: 80 mg Sodium Chloride (Saline Flush) 10 ml FLUSH ASDIRECTED PRN PRN Reason: Keep Vein Open Discontinued Medications Citric Acid/Sodium Citrate (Bicitra Solution) 30 ml PO ONETIME ONE Stop: 02/11/17 10:40 Last Admin: 02/11/17 12:10 Dose: 30 ml Fentanyl (Sublimaze) 50 mcg IVPUSH Q1H PRN PRN Reason: Pain (moderate 4-6) Last Admin: 02/11/17 01:31 Dose: 50 mcg Fentanyl (Sublimaze) Confirm Administered Dose 100 mcg .ROUTE .STK-MED ONE Stop: 02/11/17 02:41 Last Admin: 02/11/17 06:30 Dose: Not Given Fentanyl (Sublimaze) Confirm Administered Dose 100 mcg .ROUTE .STK-MED ONE Stop: 02/11/17 08:08 Last Admin: 02/11/17 12:09 Dose: Not Given Furosemide (Lasix) 20 mg IVPUSH ONETIME ONE Stop: 02/11/17 18:33 Last Admin: 02/11/17 20:13 Dose: 20 mg Lactated Ringer's (Ringers, Lactated) 500 mls @ 999 mls/hr IV .BOLUS ONE Stop: 02/10/17 00:42 Last Admin: 02/11/17 04:54 Dose: Not Given Lactated Ringer's (Ringers, Lactated) 1,000 mls @ 125 mls/hr IV ASDIRECTED KARIS Last Admin: 02/11/17 11:04 Dose: 125 mls/hr Oxytocin/Sodium Chloride (Pitocin In Ns 30 Unit/500 Ml) 30 unit in 500 mls @ 2 mls/hr IV TITRATE KARIS; 2 MUNITS/MIN PRN Reason: Protocol Last Titration: 02/11/17 10:15 Dose: 0 mls/hr Cefazolin Sodium/Dextrose 2 gm (/ Premix) 50 mls @ 100 mls/hr IV ONETIME ONE Stop: 02/11/17 11:08 Last Admin: 02/11/17 13:10 Dose: 100 mls/hr Oxytocin/Sodium Chloride (Pitocin In Ns 30 Unit/500 Ml) Confirm Administered Dose 60 unit in 1,000 mls @ as directed .ROUTE .STK-MED ONE Stop: 02/11/17 12:53 Oxytocin/Sodium Chloride (Pitocin In Ns 30 Unit/500 Ml) 30 unit in 500 mls @ as directed IV .STK-MED ONE Stop: 02/13/17 11:15 Ketorolac Tromethamine (Toradol) 15 mg IVPUSH Q6H KARIS Stop: 02/12/17 08:01 Last Admin: 02/12/17 09:05 Dose: 15 mg Lidocaine HCl (Xylocaine-Mpf 1%) 10 ml INJECT ASDIRECTED PRN PRN Reason: Perineal Repair Nalbuphine HCl (Nubain) 10 mg IVPUSH Q3H PRN PRN Reason: Pain (moderate 4-6) Last Admin: 02/10/17 22:39 Dose: 10 mg Sufentanil Citrate (Sufenta) Confirm Administered Dose 50 mcg .ROUTE .STK-MED ONE Stop: 02/11/17 02:42 Last Admin: 02/11/17 06:30 Dose: Not Given Sufentanil Citrate (Sufenta) Confirm Administered Dose 50 mcg .ROUTE .STK-MED ONE Stop: 02/11/17 08:08 Last Admin: 02/11/17 12:09 Dose: Not Given - Interaction Infant Disposition, : [place] in Room with Family Feeding: Attempted ; Nursed Fair/Poor Support Person: Significant Other - Recovery Exam Fundal Tone: Firm Fundal Level: 1 Fingerbreadths Below Umbilicus Fundal Placement: Midline Lochia Amount: Scant Lochia Color: Rubra/Red Perineum Description: Intact, Minimal Bruising/Swelling Episiotomy/Laceration: None Bladder Status: Voiding Urinary Elimination: Indwelling Catheter - Exam General: Alert, Oriented HEENT: Pupils Reactive Lungs: Clear to Auscultation, Normal Respiratory Effort Cardiovascular: Regular Rate, Regular Rhythm, No Murmurs Extremities: Pedal Edema (1+ bilaterally) Skin: Warm, Dry, Intact Wound/Incisions: Healing Well - Problem List & Annotations (1) Impaired glucose in , antepartum SNOMED Code(s): 832303063 Code(s): O99.810 - ABNORMAL GLUCOSE COMPLICATING Status: Acute Current Visit: Yes (2) care in third trimester SNOMED Code(s): 353155721, 91229250, 060548555, 824281827 Code(s): Z34.93 - ENCNTR FOR SUPRVSN OF NORMAL PREG, UNSP, THIRD TRIMESTER Status: Acute Current Visit: Yes (3) Status post delivery SNOMED Code(s): 315943659 Code(s): Z98.891 - HISTORY OF UTERINE SCAR FROM PREVIOUS SURGERY Status: Acute Current Visit: Yes - Problem List Review Problem List Initiated/Reviewed/Updated: Yes - My Orders Last 24 Hours: My Active Orders 02/12/17 16:00 Ibuprofen [Motrin] 800 mg PO Q8H PRN 02/13/17 08:00 Ferrous Sulfate 325 mg PO WITHBREAKFAST - Assessment Assessment:: 31-year-old, now , POD#2 status post primary section at 39w6d for failure to progress - Plan Plan:: 1. Continue routine postoperative care 2. 3. CBC is stable. Patient is taking oral iron 4. Anticipate discharge 02/14/17 Nicole Hester MD
[2017-02-14] MEDS: Acetaminophen/oxyCODONE 325-5 MG Tab PO PRN ×3 (02:18→11:46)
[2017-02-14] MEDS: Ibuprofen 800 MG Tab PO PRN (05:27)
--- NOTE | 2017-02-14 07:47 | PCM.DCSUM1 ---
Discharge Summary - Hospital Course Free Text/Narrative:: 31-year-old, , POD#3 status post primary section at 39w6d for failure to progress. - Discharge Data Discharge Date: 02/14/17 Discharge Disposition: Home, Self-Care 01 Condition: Good - Discharge Diagnosis/Problem(s) (1) Impaired glucose in , antepartum SNOMED Code(s): 563871397 ICD Code: O99.810 - ABNORMAL GLUCOSE COMPLICATING Status: Acute Current Visit: Yes (2) care in third trimester SNOMED Code(s): 274686634, 44848482, 442105660, 623519256 ICD Code: Z34.93 - ENCNTR FOR SUPRVSN OF NORMAL PREG, UNSP, THIRD TRIMESTER Status: Acute Current Visit: Yes (3) Status post delivery SNOMED Code(s): 040076937 ICD Code: Z98.891 - HISTORY OF UTERINE SCAR FROM PREVIOUS SURGERY Status: Acute Current Visit: Yes - Patient Summary/Data Operative Procedure(s) Performed: Primary low transverse section Complications: None Consults: Consultations 02/11/17 14:43 Consult to Pump House Technician [CONS] Routine Labs Pending at D/C: None Recommended Follow-up Testing/Procedures: None Planned Operative Procedure(s) after DC: None Hospital Course: Unremarkable (please see subjective section) - Patient Instructions Diet: Usual Diet as Tolerated Activity: As Tolerated, No Lifting Over 20 Pounds, Rest and Relax Today Driving: Do Not Drive (while taking pain medication) Showering/Bathing: May Shower Wound/Incision Care: Keep Operative Site/Wound Site Clean and Dry Notify Provider of: Fever, Increased Pain, Swelling and Redness, Drainage, Nausea and/or Vomiting - Discharge Plan Home Medications: Home Meds Acetaminophen [Tylenol] 650 mg PO Q4H PRN tablet 02/14/17 [Rx] Docusate Sodium [Colace] 100 mg PO Q12H PRN cap 02/14/17 [Rx] Ferrous Sulfate 325 mg PO WITHBREAKFAST tablet 02/14/17 [Rx] Ibuprofen [IJD: Ibuprofen] 800 mg PO Q8H PRN tablet 02/14/17 [Rx] Vit with Ca/FA/Iron [ Plus Iron] 1 each PO WITHBREAKFAST tablet 02/14/17 [Rx] Referrals: Nicole Hester MD [Primary Care Provider] - (6-8 weeks for examination) - Discharge Summary/Plan Comment DC Time >30 min.: No Discharge Summary/Plan Comment: Discharge home today. Follow-up in clinic in 6-8 weeks for routine exam. Reasons to present to clinic for evaluation or to present to the ED were reviewed with the patient. She voiced her understanding and all questions were answered. - General Info Date of Service: 02/14/17 Subjective Update: 31-year-old, now , POD#3 status post primary section for failure to progress at 39w6d. Patient is tolerating a general diet. She has been ambulating without difficulty. New has been removed, and she is urinating without difficulty. She is passing gas. No dizziness or lightheadedness. Pain is well controlled. She thinks she may have a hemorrhoid. No other concerns per patient. No concerns per nursing. Functional Status: Reports: Pain Controlled, Tolerating Diet, Ambulating, Urinating - Review of Systems General: Reports: No Symptoms HEENT: Reports: No Symptoms Pulmonary: Reports: No Symptoms Cardiovascular: Reports: No Symptoms Gastrointestinal: Reports: No Symptoms Genitourinary: Reports: No Symptoms Musculoskeletal: Reports: No Symptoms Skin: Reports: No Symptoms - Patient Data Vitals - Most Recent: Last Vital Signs Temp 36.8 C 02/14/17 04:00 Pulse 78 02/14/17 04:00 Resp 18 02/14/17 04:00 BP 138/74 02/14/17 04:00 Pulse Ox 98 02/13/17 19:45 Weight - Most Recent: 119.295 kg Med Orders - Current: Current Medications Acetaminophen (Tylenol) 650 mg PO Q4H PRN PRN Reason: Pain (Mild 1-3) and fever Carboprost Tromethamine (Hemabate Ds) 250 mcg IM ASDIRECTED PRN PRN Reason: HEMORRHAGE Diphenhydramine HCl (Benadryl) 25 mg IVPUSH Q6H PRN PRN Reason: Itching or Nausea Docusate Sodium (Colace) 100 mg PO Q12H PRN PRN Reason: Constipation Last Admin: 02/13/17 21:04 Dose: 100 mg Ephedrine Sulfate (Ephedrine Sulfate) 5 mg IVPUSH SEECOMMENT PRN PRN Reason: Other Ferrous Sulfate (Ferrous Sulfate) 325 mg PO WITHBREAKFAST KARIS Last Admin: 02/13/17 08:42 Dose: 325 mg Lactated Ringer's (Ringers, Lactated) 1,000 mls @ 125 mls/hr IV ASDIRECTED KARIS Last Admin: 02/12/17 00:29 Dose: 125 mls/hr Oxytocin/Sodium Chloride (Pitocin In Ns 30 Unit/500 Ml) 30 unit in 500 mls @ 2 mls/hr IV TITRATE KARIS; 2 MUNITS/MIN PRN Reason: Protocol Last Titration: 02/11/17 16:37 Dose: 0 mls/hr Ibuprofen (Motrin) 800 mg PO Q8H PRN PRN Reason: mild pain or fever Last Admin: 02/14/17 05:27 Dose: 800 mg Methylergonovine Maleate (Methergine) 0.2 mg IM ASDIRECTED PRN PRN Reason: Hemorrhage Misoprostol (Cytotec) 800 mcg RECTAL ASDIRECTED PRN PRN Reason: Hemorrhage Misoprostol (Cytotec) 25 mcg VAG Q4H PRN PRN Reason: cervical ripening Last Admin: 02/10/17 14:01 Dose: 25 mcg Naloxone HCl (Narcan) 0.1 mg IVPUSH SEECOMMENT PRN PRN Reason: Respiratory Depression Ondansetron HCl (Zofran) 4 mg IV Q4H PRN PRN Reason: Nausea/Vomiting Last Admin: 02/11/17 07:59 Dose: 4 mg Oxycodone/Acetaminophen (Percocet 325-5 Mg) 1 tab PO Q4H PRN PRN Reason: Pain (moderate 4-6) Oxycodone/Acetaminophen (Percocet 325-5 Mg) 2 tab PO Q4H PRN PRN Reason: Pain (moderate 4-6) Last Admin: 02/14/17 06:18 Dose: 2 tab Prenat Multivit/[place]/Iron/Folic Ac ( Plus Iron) 1 each PO WITHBREAKFAST KARIS Last Admin: 02/13/17 08:42 Dose: 1 each Simethicone (Simethicone) 80 mg PO Q4H PRN PRN Reason: Gas Last Admin: 02/12/17 23:00 Dose: 80 mg Sodium Chloride (Saline Flush) 10 ml FLUSH ASDIRECTED PRN PRN Reason: Keep Vein Open Discontinued Medications Citric Acid/Sodium Citrate (Bicitra Solution) 30 ml PO ONETIME ONE Stop: 02/11/17 10:40 Last Admin: 02/11/17 12:10 Dose: 30 ml Fentanyl (Sublimaze) 50 mcg IVPUSH Q1H PRN PRN Reason: Pain (moderate 4-6) Last Admin: 02/11/17 01:31 Dose: 50 mcg Fentanyl (Sublimaze) Confirm Administered Dose 100 mcg .ROUTE .STK-MED ONE Stop: 02/11/17 02:41 Last Admin: 02/11/17 06:30 Dose: Not Given Fentanyl (Sublimaze) Confirm Administered Dose 100 mcg .ROUTE .STK-MED ONE Stop: 02/11/17 08:08 Last Admin: 02/11/17 12:09 Dose: Not Given Furosemide (Lasix) 20 mg IVPUSH ONETIME ONE Stop: 02/11/17 18:33 Last Admin: 02/11/17 20:13 Dose: 20 mg Lactated Ringer's (Ringers, Lactated) 500 mls @ 999 mls/hr IV .BOLUS ONE Stop: 02/10/17 00:42 Last Admin: 02/11/17 04:54 Dose: Not Given Lactated Ringer's (Ringers, Lactated) 1,000 mls @ 125 mls/hr IV ASDIRECTED KARIS Last Admin: 02/11/17 11:04 Dose: 125 mls/hr Oxytocin/Sodium Chloride (Pitocin In Ns 30 Unit/500 Ml) 30 unit in 500 mls @ 2 mls/hr IV TITRATE KARIS; 2 MUNITS/MIN PRN Reason: Protocol Last Titration: 02/11/17 10:15 Dose: 0 mls/hr Cefazolin Sodium/Dextrose 2 gm (/ Premix) 50 mls @ 100 mls/hr IV ONETIME ONE Stop: 02/11/17 11:08 Last Admin: 02/11/17 13:10 Dose: 100 mls/hr Oxytocin/Sodium Chloride (Pitocin In Ns 30 Unit/500 Ml) Confirm Administered Dose 60 unit in 1,000 mls @ as directed .ROUTE .STK-MED ONE Stop: 02/11/17 12:53 Oxytocin/Sodium Chloride (Pitocin In Ns 30 Unit/500 Ml) 30 unit in 500 mls @ as directed IV .STK-MED ONE Stop: 02/13/17 11:15 Ketorolac Tromethamine (Toradol) 15 mg IVPUSH Q6H KARIS Stop: 02/12/17 08:01 Last Admin: 02/12/17 09:05 Dose: 15 mg Lidocaine HCl (Xylocaine-Mpf 1%) 10 ml INJECT ASDIRECTED PRN PRN Reason: Perineal Repair Nalbuphine HCl (Nubain) 10 mg IVPUSH Q3H PRN PRN Reason: Pain (moderate 4-6) Last Admin: 02/10/17 22:39 Dose: 10 mg Sufentanil Citrate (Sufenta) Confirm Administered Dose 50 mcg .ROUTE .STK-MED ONE Stop: 02/11/17 02:42 Last Admin: 02/11/17 06:30 Dose: Not Given Sufentanil Citrate (Sufenta) Confirm Administered Dose 50 mcg .ROUTE .STK-MED ONE Stop: 02/11/17 08:08 Last Admin: 02/11/17 12:09 Dose: Not Given - Exam General: Reports: Alert, Oriented Lungs: Reports: Clear to Auscultation, Normal Respiratory Effort Cardiovascular: Reports: Regular Rate, Regular Rhythm, No Murmurs GI/Abdominal Exam: Soft, Non-Tender Extremities: Pedal Edema (Trace bilaterally) Skin: Reports: Warm, Dry, Intact Wound/Incisions: Reports: Healing Well, No Drainage. Denies: Erythema *Q Meaningful Use (DIS) - VTE *Q VTE Criteria *Q: - Stroke *Q Stroke Criteria *Q: - AMI *Q AMI Criteria *Q:
[2017-02-14] MEDS: Prenatal Multivitamin with Calcium/Folic Acid/Iron Tab PO SCH (09:30)
[2017-02-14] MEDS: Docusate Sodium 100 MG Cap PO PRN (09:30)
[2017-02-14] MEDS: Ferrous Sulfate 325 MG Tab PO SCH (09:30)
[2017-02-14] MEDS ORDERED: Ketorolac 30 MG/ML SDV IVPUSH ONE (11:49)
[2017-02-14] MEDS ORDERED: Morphine PF 1 MG/ML Amp ONE (11:49)
[2017-02-14] MEDS ORDERED: Ondansetron 4 MG/2 ML SDV IV ONE (11:49)
[2017-02-14] MEDS ORDERED: fentaNYL 100 MCG/2 ML SDV ITHECAL ONE (11:49)
== END 2017-02-14 11:50 | disposition home or self-care (01) | DRG 540 ==
LOC: DL.OBCHECK 10:42 → DL.OB 02-10 → EDSTATUS 02-10 23:36 → OBSVTOIN 02-11 13:43
PROVIDERS: ADMIT Family Medicine; ATTEND Family Medicine
PROC: 10D00Z1 Extraction of Products of Conception, Low, Open Approach (ICD-10-PCS; principal; 2017-02-11)
PROC: 3E0P3VZ Introduction of Hormone into Female Reproductive, Percutaneous Approach (ICD-10-PCS; 2017-02-11)
DX: O99.814 Abnormal glucose complicating childbirth (principal); O34.211 Maternal care for low transverse scar from previous cesarean delivery; O32.4XX0 Maternal care for high head at term, not applicable or unspecified; Z3A.39 39 weeks gestation of pregnancy; Z37.0 Single live birth
CPT/HCPCS: 36415; 85025; 85027; 86850; 86900; 86901; A9270-GY; J0690; J1885; J1940; J2274; J2300; J2405; J2590; J3010; J7120

== ENCOUNTER 2018-06-22 09:58 | Inpatient (IN) | payer BC ==
[2018-06-22] MEDS ORDERED: Oxytocin/Normal Saline 30 UNIT/500 ML BAG IV SCH (10:00)
[2018-06-22] MEDS ORDERED: Lactated Ringers 1,000 ML IV SCH ×2 (10:00→15:27)
[2018-06-22] MEDS ORDERED: Citric Acid/Sodium Citrate Solution 30 ML Cup PO ONE (10:00)
[2018-06-22] MEDS ORDERED: Sodium Chloride 0.9% 10 ML Syringe FLUSH PRN (10:00)
[2018-06-22] MEDS ORDERED: Tranexamic Acid 1,000 MG in Sodium Chloride 0.9% 100 ML IV PRN ×2 (10:00→15:27)
[2018-06-22] MEDS: Lactated Ringers 1,000 ML IV SCH ×2 (11:26→19:22)
[2018-06-22] MEDS ORDERED: ceFAZolin 2 GM in Premix Bag 1 BAG IV ONE (11:28)
[2018-06-22] MEDS ORDERED: Lactated Ringers 1,000 ML IV ONE (12:24)
[2018-06-22] MEDS ORDERED: Ketorolac 30 MG/ML SDV IVPUSH ONE (12:24)
[2018-06-22] MEDS ORDERED: ePHEDrine 50 MG/ML SDV IV ONE (12:24)
[2018-06-22] MEDS ORDERED: Morphine PF 1 MG/ML Amp ONE (12:24)
[2018-06-22] MEDS ORDERED: Oxytocin/Normal Saline 30 UNIT/500 ML BAG IV ONE (12:24)
--- NOTE | 2018-06-22 14:25 | PCM.HPR ---
H & P Addendum review - H & P Addendum Review Date of Original H & P: 06/19/18 Date Reviewed: 06/22/18 Time Reviewed: 11:00 Patient was Examined: No Changes
--- NOTE | 2018-06-22 14:53 | PCM.PRNOTE ---
- Free Text/Narrative Note: Section Operative Report Date of Surgery: 06/22/2018 Surgeon: Nicole Hester MD Clinical Ob: MD Bebe Castellanos, MS3 Pre-Operative Diagnosis: at 39w2d History of section, declines Impaired glucose tolerance of Post-Operative Diagnosis: Same Procedure Performed: Repeat low transverse section Anesthesia: Spinal EBL: 500 mL IVF: 1,000 mL Drains: New catheter with 250 mL of urine output Specimens: None Complications: None apparent Findings: Normal uterus, tubes, and ovaries. Indication and Consent: The patient presented to floor today for scheduled at term due to hx of prior and desire for elective repeat . The patient understood that the risks of section include, but are not limited to, visceral or vascular injury, infection, blood loss and need for blood transfusion, prolonged hospitalization, and reoperation. The patient again stated understanding and desired to proceed. All questions were answered. Procedure in Detail: The patient was taken to the operating room where spinal anesthesia was placed and found to be adequate. 2 grams of cefazolin (Ancef) were given for infection prophylaxis. She was then prepped and draped in routine fashion in dorsal supine position with a left adamson tilt. New catheter and pneumoboots were placed. A Pfannenstiel skin incision was made with a scalpel. The incision was carried down to the fascia sharply. The fascia was incised and extended laterally. The superior aspect of the fascia was grasped with Olvin clamps; the underlying rectus muscle and pyramidalis was dissected off with sharp and blunt technique. In a similar fashion, the inferior aspect of the fascia was elevated with Olvin clamps and the rectus muscle was dissected off. Hemostasis was achieved with the Bovie. The rectus musculature was in the midline down to the level of the pubic symphysis. Pre-peritoneal fatty tissue was bluntly dissected to expose the peritoneum. The peritoneum was found to be free of adherent bowel or bladder tissue and entered bluntly. The peritoneal opening was then extended superiorly and inferiorly to the bladder reflection with good visualization of the bladder. The Mu retractor was inserted. Intraabdominal survey revealed scant, clear peritoneal fluid and thinned-out lower uterine segment. The vesicouterine peritoneum was opened with a pickup and mets, and the bladder flap was developed. The lower uterine segment was incised with a scalpel. The amniotic sac was ruptured with an Allis clamp and clear fluid was noted. The uterine incision was extended bluntly with lateral and upward traction. The fetus was in cephalic position. The head was elevated out of the maternal pelvis with special attention paid to avoid using the uterine incision as a fulcrum. Gentle fundal pressure was applied once the head was brought into the incision. Vacuum extraction was used to facilitate delivery of the 's head. The was delivered with minimal difficulty. A nuchal cord was reduced after delivery. Bulb suctioning of the infant's nose and mouth was performed on the operative field. Cord blood was collected.The cord was clamped and cut in standard fashion, and the infant was handed over to the awaiting nursery staff. IV oxytocin was initiated to facilitate uterine contractions. The placenta was delivered intact with manual message of the uterine fundus along with gentle cord traction. The inside of the uterus was gently wiped with a lap sponge to assure complete removal of remaining products of conception. The uterine incision was closed with 0 -Vicryl suture in a running locked fashion. Two figure-of-8 sutures were placed to achieve hemostasis. A second imbricating layer of 0-Monocryl was also placed. The incision was inspected and hemostasis was achieved. The ovaries and tubes were visualized and found to be normal. The Mu retractor was removed. The blood clots and fluid were wiped out of the abdomen and pelvis with moist laparotomy sponges. The uterine incision was re-inspected along with all other incised surfaces and some mild oozing was noted on the superior aspect of the incision where the suture needle pierced the endometrium. Surgicel was placed over the incision. The peritoneum was then reapproximated with 2-0 Vicryl suture. The fascia was then closed with 2-0 looped PDS suture with care not to include any underlying abdominal contents. The sub-cutaneous layer was reapproximated with suture. The skin was closed with 4-0 Monocryl suture on a Jose needle in a subcuticular fashion. Sponge and instrument counts were reported as correct times two. West tolerated procedure well and was taken to PACU in stable condition. Nicole Hester MD
[2018-06-22] MEDS ORDERED: Methylergonovine 0.2 MG/1 ML Amp IM PRN (15:27)
[2018-06-22] MEDS ORDERED: Acetaminophen/oxyCODONE 325-5 MG Tab PO PRN (15:27)
[2018-06-22] MEDS ORDERED: Naloxone 2 MG/2 ML Syringe IVPUSH PRN (15:27)
[2018-06-22] MEDS ORDERED: Misoprostol 400 MCG (4 X 100 MCG TAB) RECTAL PRN (15:27)
[2018-06-22] MEDS ORDERED: diphenhydrAMINE 50 MG/ML SDV IVPUSH PRN (15:27)
[2018-06-22] MEDS ORDERED: Acetaminophen 325 MG Tab PO PRN (15:27)
[2018-06-22] MEDS ORDERED: ePHEDrine 50 MG/ML SDV IVPUSH PRN (15:27)
[2018-06-22] MEDS ORDERED: Ondansetron 4 MG/2 ML SDV IV PRN (15:27)
[2018-06-22] MEDS ORDERED: Carboprost Tromethamine 250 MCG/1 ML Amp IM ONE (15:27)
--- NOTE | 2018-06-22 17:42 | PCM.DEL ---
L & D Note - General Info Date of Service: 06/22/18 Mother's Due Date: 06/27/18 - Delivery Note Delivery Outcome: Livebirth Infant Delivery Method: Repeat Infant Delivery Mode: Vacuum Extraction Presentation: Vertex Nuchal Cord: Present, Reduced Anesthesia Type: Spinal Amniotic Fluid Description: Clear Episiotomy Type: None Placenta: Manual Removal Cord: 3 Vessels Estimated Blood Loss: 500 : Bulb Syringe, Stimulated, Warmed, [place] Used, Warmer Used Provider: Nicole Hester Score 1 min: 9 Score 5 min: 9 Delivery Comments (Free Text/Narrative):: Please see procedure note for details. - General Info Date of Service: 06/22/18 - Patient Data Vitals - Most Recent: Last Vital Signs Temp 36.7 C 06/22/18 16:27 Pulse 87 06/22/18 16:17 Resp 16 06/22/18 15:46 BP 94/51 L 06/22/18 16:17 Pulse Ox 98 06/22/18 13:55 Weight - Most Recent: 113.398 kg I&O - Last 24 Hours: Intake & Output 06/22/18 06/22/18 06/22/18 06:59 14:59 22:59 Intake Total 1015 200 Output Total 125 Balance 1015 75 Lab Results Last 24 Hours: Laboratory Results - last 24 hr 06/21/18 06/22/18 Range/Units 11:45 08:00 WBC 14.5 H (5.0-10.0) 10^3/uL RBC 4.76 (4.2-5.4) 10^6/uL Hgb 13.3 D (12.0-16.0) g/dL Hct 39.7 (37.0-47.0) % MCV 83.4 D (80-100) fL MCH 27.9 (27.0-34.0) pg MCHC 33.5 (33.0-35.0) g/dL Plt Count 198 (150-450) 10^3/uL Neut % (Auto) 81.2 H (42.2-75.2) % Lymph % (Auto) 12.9 L (20.5-50.1) % [place] % (Auto) 5.6 (2-8) % Eos % (Auto) 0.2 L (1.0-3.0) % Baso % (Auto) 0.1 (0.0-1.0) % Blood Type O POSITIVE Gel Antibody Screen Negative Med Orders - Current: Current Medications Acetaminophen (Tylenol) 650 mg PO Q6H PRN PRN Reason: mild pain or fever Diphenhydramine HCl (Benadryl) 25 mg IVPUSH Q6H PRN PRN Reason: Itching or Nausea Docusate Sodium (Colace) 100 mg PO Q12H PRN PRN Reason: Constipation Ephedrine Sulfate (Ephedrine Sulfate) 5 mg IVPUSH SEECOMMENT PRN PRN Reason: Other Tranexamic Acid 1,000 mg/ (Sodium Chloride) 110 mls @ 660 mls/hr IV ONETIME PRN PRN Reason: Bleeding Oxytocin/Sodium Chloride (Pitocin In Ns 30 Unit/500 Ml) 30 unit in 500 mls @ 2 mls/hr IV TITRATE KARIS; Protocol Last Titration: 06/22/18 16:44 Dose: 0 mls/hr Lactated Ringer's (Ringers, Lactated) 1,000 mls @ 125 mls/hr IV ASDIRECTED KARIS Last Admin: 06/22/18 11:26 Dose: 125 mls/hr Lactated Ringer's (Ringers, Lactated) 1,000 mls @ 500 mls/hr IV .BOLUS [facility] Last Admin: 06/22/18 10:24 Dose: 500 mls/hr Lactated Ringer's (Ringers, Lactated) 1,000 mls @ 125 mls/hr IV ASDIRECTED [facility] Tranexamic Acid 1,000 mg/ (Sodium Chloride) 110 mls @ 660 mls/hr IV ONETIME PRN PRN Reason: Bleeding Ibuprofen (Motrin) 800 mg PO Q8H PRN PRN Reason: mild pain or fever Ketorolac Tromethamine (Toradol) 15 mg IVPUSH Q6H [facility] Stop: 06/23/18 07:01 Methylergonovine Maleate (Methergine) 0.2 mg IM ONETIME PRN PRN Reason: Excessive Vaginal Bleeding Misoprostol (Cytotec) 800 mcg RECTAL ASDIRECTED PRN PRN Reason: Excessive bleeding Naloxone HCl (Narcan) 0.1 mg IVPUSH SEECOMMENT PRN PRN Reason: Respiratory Depression Ondansetron HCl (Zofran) 4 mg IV Q4H PRN PRN Reason: Nausea/Vomiting Oxycodone/Acetaminophen (Percocet 325-5 Mg) 1 tab PO Q4H PRN PRN Reason: Pain (moderate 4-6) Oxycodone/Acetaminophen (Percocet 325-5 Mg) 2 tab PO Q4H PRN PRN Reason: Pain (moderate 4-6) Prenat Multivit/[place]/Iron/Folic Ac ( Plus Iron) 1 each PO DAILY KARIS Simethicone (Simethicone) 160 mg PO QID KARIS Sodium Chloride (Saline Flush) 10 ml FLUSH ASDIRECTED PRN PRN Reason: Keep Vein Open Discontinued Medications Carboprost Tromethamine (Hemabate Ds) 250 mcg IM ONETIME ONE Stop: 06/22/18 15:28 Citric Acid/Sodium Citrate (Bicitra Solution) 30 ml PO ONETIME ONE Stop: 06/22/18 10:01 Last Admin: 06/22/18 11:21 Dose: 30 ml Ephedrine Sulfate (Ephedrine Sulfate) 20 mg IV .STK-MED ONE Stop: 06/22/18 12:25 Cefazolin Sodium/Dextrose 2 gm (/ Premix) 50 mls @ 100 mls/hr IV ONETIME ONE Stop: 06/22/18 11:57 Last Admin: 06/22/18 11:48 Dose: 100 mls/hr Oxytocin/Sodium Chloride (Pitocin In Ns 30 Unit/500 Ml) 30 unit in 500 mls @ as directed IV .STK-MED ONE Stop: 06/22/18 12:25 Lactated Ringer's (Ringers, Lactated) 1,000 mls @ as directed IV .STK-MED ONE Stop: 06/22/18 12:25 Ketorolac Tromethamine (Toradol) 30 mg IVPUSH .STK-MED ONE Stop: 06/22/18 12:25 Morphine Sulfate (Duramorph Pf) 0.2 mg .XX .STK-MED ONE Stop: 06/22/18 12:25 - Problem List & Annotations (1) History of delivery SNOMED Code(s): 656903619 Code(s): Z98.891 - HISTORY OF UTERINE SCAR FROM PREVIOUS SURGERY Status: Acute Current Visit: Yes (2) Impaired glucose in , antepartum SNOMED Code(s): 690704200, 595164746 Code(s): O99.810 - ABNORMAL GLUCOSE COMPLICATING Status: Acute Current Visit: No (3) care in third trimester SNOMED Code(s): 254961950, 32323270, 00746854, 618407228, 083853912 Code(s): Z34.93 - ENCNTR FOR SUPRVSN OF NORMAL PREG, UNSP, THIRD TRIMESTER Status: Acute Current Visit: No (4) Status post delivery SNOMED Code(s): 887410108, 394046673 Code(s): Z98.891 - HISTORY OF UTERINE SCAR FROM PREVIOUS SURGERY Status: Acute Current Visit: No - Problem List Review Problem List Initiated/Reviewed/Updated: Yes - My Orders Last 24 Hours: My Active Orders 06/22/18 14:46 Consult to [facility] [CONS] Routine - Assessment Assessment:: 32-year-old, now , status post repeat section at 39w2d - Plan Plan:: 1. Initiate routine postoperative cares. 2. Plans to breastfeed. consultation placed. 3. Closely monitor pain and bleeding 4. Anticipate discharge 06/25/2018 Nicole Hester MD
[2018-06-22] MEDS: Simethicone 80 MG Tab.Chew PO SCH ×2 (17:53→21:25)
[2018-06-22] MEDS: Ketorolac 30 MG/ML SDV IVPUSH SCH (18:30)
[2018-06-22] MEDS: Docusate Sodium 100 MG Cap PO PRN (21:25)
[2018-06-23] MEDS: Ketorolac 30 MG/ML SDV IVPUSH SCH ×2 (00:41→06:24)
[2018-06-23] MEDS: Prenatal Multivitamin with Calcium/Folic Acid/Iron Tab PO SCH ×2 (08:47→09:24)
[2018-06-23] MEDS: Acetaminophen/oxyCODONE 325-5 MG Tab PO PRN ×2 (08:47→16:17)
[2018-06-23] MEDS: Docusate Sodium 100 MG Cap PO PRN ×2 (08:49→20:52)
[2018-06-23] MEDS: Simethicone 80 MG Tab.Chew PO SCH ×4 (08:49→20:52)
--- NOTE | 2018-06-23 11:46 | PN ---
DATE: 06/23/2018 SUBJECTIVE: The patient is postop day #1 status post elective repeat low- transverse section at 39 weeks and 2 days' gestation. The patient is 3, now para 2-0-1-2. Overnight, the patient endorses doing well. She states she has been up and voiding this morning without difficulty. She does endorse 1 episode of lightheadedness this morning when walking to the bathroom. She also is experiencing a mild headache which is not concerning to her at this time. She is eating and drinking well. Having expected amount of vaginal bleeding. She is having slight swelling which she states is much better than her first . She endorses is going well. No other concerns at this time. OBJECTIVE: Vital Signs: Temperature 99.1, HR 105 b.p.m, BP 116/63, RR 16 breaths per minute, O2 saturation 96% on room air. General: Alert, cooperative, no acute distress. HEENT: Grossly normal. Pupils are equal, round, and reactive to light and accommodation, extraocular movements intact. Neck: Supple. Pulmonary: Lungs are clear to auscultation bilaterally. Cardiovascular: Tachycardic, regular rhythm. No murmurs noted. Abdomen: Soft, normoactive bowel sounds. Slight distention. The patient is tender to palpation in the periumbilical and suprapubic region. Uterus palpated 2 cm below the umbilicus. Incision: Clean, dry, intact. Bandage removed. Steri-Strips in place with some hanging off on the edges. No warmth. No erythema or edema noted around incision. Extremities: Trace pedal edema present in lower extremities bilaterally. Compression stockings in place. No tenderness to palpation of calves bilaterally. Neurologic: Grossly normal. Cranial nerves 2 through 12 are intact. RECENT LABORATORY RESULTS: Hematology: WBC 11.4, RBC 3.25, HGB 9.0, HCT 27.3, platelet count 143. ASSESSMENT: The patient is status post day #1 from repeat elective low transverse section at 39 weeks 2 days' gestation. The patient is progressing as expected. PLAN: 1. Continue routine postoperative cares. 2. Encourage . 3. Closely monitor pain and bleeding. 4. Anticipated discharge date on 06/25/2018. The patient was seen and evaluated today by myself and Dr. Nicole Hester. Assessment and plan are under advisement of Dr. Hester. -Bebeserene Segura, MS-III [facility] /[id number] Patient was personally seen and examined with the medical student. I reviewed the noted scribed on my behalf and necessary changes have been made to reflect my opinion on the history, exam, assessment, and plan. Nicole Hseter MD [facility]
[2018-06-23] MEDS: Ibuprofen 800 MG Tab PO PRN (16:15)
[2018-06-24] MEDS: Ibuprofen 800 MG Tab PO PRN ×2 (01:34→08:25)
[2018-06-24] MEDS: Simethicone 80 MG Tab.Chew PO SCH (08:24)
[2018-06-24] MEDS: Prenatal Multivitamin with Calcium/Folic Acid/Iron Tab PO SCH (08:25)
[2018-06-24] MEDS: Docusate Sodium 100 MG Cap PO PRN (08:25)
[2018-06-24] MEDS: Acetaminophen/oxyCODONE 325-5 MG Tab PO PRN (08:27)
--- NOTE | 2018-06-25 01:18 | DISCH ---
ADMITTING DIAGNOSES: 1. A 32-year-old, . 2. Presentation at 39 weeks and 2 days' gestation. 3. History of section. 4. Declines vaginal after . 5. Impaired glucose tolerance of . DISCHARGE DIAGNOSES: 1. A 32-year-old 3, now para 2. 2. Presentation at 39 weeks and 2 days' gestation. 3. History of section. 4. Declines vaginal after . 5. Impaired glucose tolerance of . BRIEF HISTORY: The patient is a 32-year-old female with the above listed diagnoses, who presented to Labor and Delivery for an elective repeat low transverse section and delivery of an early-term female. After the patient presented to Labor and Delivery, the patient underwent section. section was completed without complications. Please see procedure note for details. Estimated blood loss was 500 mL at that time. HOSPITAL COURSE: Good. The patient reported minimal cramping and bleeding throughout stay. New was removed early on postoperative day #1, and the patient was able to void without difficulty. She ambulated well, and is passing flatus. She was tolerating a general diet. She did report some symptoms of lightheadedness on original ambulation on postoperative day #1, but this has since resolved. Dressing was removed from incision site on hospital day #1 due to lochia saturating the dressing. Incision was left open to open air. More serosanguineous fluid began to weep. A strip of gauze was placed for comfort. On postoperative day #2, peeling Steri-Strips were replaced with clean, dry ones on the left side of the incision. Incision was found to be clean, dry, and intact. [place] has also done well. scores were 9 and 9 at 1 and 5 minutes respectively. [place] has spent lots of time moving in with mom and dad for bonding and initiation of , which have been going well. The patient desired discharge on postoperative day #2 as the family is doing well. DISCHARGE CONDITION: Good. DISCHARGE PHYSICAL EXAMINATION: Vital Signs: Temperature is 98.3, HR is 98 bpm, BP is 120/76, RR is 16 breaths per minute, and O2 saturation is 99% on room air. General: Alert and cooperative, in no acute distress. HEENT: Grossly normal. Pupils are equal, round, and reactive to light and accommodation. Extraocular movements are intact. Neck: Supple. Pulmonary: Lungs are clear to auscultation bilaterally. Cardiovascular: Regular rate and rhythm. No murmurs are noted. Abdomen: Soft and nontender. Normoactive bowel sounds. Uterus palpated 3 cm below the umbilicus. Skin: Incision is clean, dry, and intact. Peeling Steri-Strips are removed and new strips are placed. No erythema or edema is noted around the incision site. Healing well. Extremities: No pedal edema is present in lower extremities bilaterally. No tenderness to palpation of calves bilaterally. Neurologic: Grossly normal. Cranial nerves 2 through 12 are intact. LABORATORY DATA: Recent lab results, Hematology: WBC of 11.4, RBC of 3.25, HGB of 9.0, HCT of 27.3, and platelet count of 143. These labs were taken on 06/23/2018. DISCHARGE MEDICATIONS: 1. Percocet. 2. Ibuprofen. 3. Iron. 4. Breast pump. DISPOSITION: Home with family. DISCHARGE INSTRUCTIONS: The patient was advised to follow up in clinic with Dr. Nicole Hester on 06/26/2018. If any questions or concerns arise, she was reminded to call Labor and Delivery over the weekend or call the clinic office tomorrow morning through Monday. Questions were answered, and the patient is in agreement with this plan. Discharge evaluation was completed by myself and Dr. Nicole Hester. This evaluation is under advisement of Dr. Nicole Hester. [facility] /[id number] Patient was personally seen and examined with the medical student. I reviewed the noted scribed on my behalf and necessary changes have been made to reflect my opinion on the history, exam, assessment, and plan. Nicole Hester MD [facility]
== END 2018-06-24 11:30 | disposition home or self-care (01) | DRG 540 ==
LOC: DL.OB 09:58 → UNDOADMOB 09:58 → DL.OB 12:23 → OBSVTOIN 12:23
PROVIDERS: ADMIT Family Medicine; ATTEND Family Medicine
PROC: 10D00Z1 Extraction of Products of Conception, Low, Open Approach (ICD-10-PCS; principal; 2018-06-22)
DX: O34.211 Maternal care for low transverse scar from previous cesarean delivery (principal); O99.814 Abnormal glucose complicating childbirth; Z3A.39 39 weeks gestation of pregnancy; Z37.0 Single live birth; O69.81X0 Labor and delivery complicated by cord around neck, without compression, not applicable or unspecified
CPT/HCPCS: 36415; 59025; 85025; 85027; 86850; 86900; 86901; 94010; A9270-GY; J0690; J1885; J2274; J2590; J7120